=== PATIENT | female | born 1965 | race Asian ===

== ENCOUNTER 2024-02-03 09:03 | Emergency (ER) | payer OTHER ==
[~2024-02-03] VITALS: Ht 167.6 cm; Wt 68.2 kg
[2024-02-03 09:13] VITALS: TEMP 98.9
[2024-02-03 09:27] LABS: COVID AG,FIA SOURCE NASAL SWAB
[2024-02-03 10:02] LABS: SARS-COV2 (COVID) ANTIGEN,FIA Negative (Negative)
[2024-02-03 10:05] LABS: INFLUENZA TYPE A NEGATIVE FOR TYPE A (NEGATIVE); INFLUENZA TYPE B NEGATIVE FOR TYPE B (NEGATIVE)
[2024-02-03] MEDS: DEXAMETHASONE 4 MG TABLET PO ONE (10:09)
[2024-02-03] MEDS: BENZONATATE 100 MG CAPSULE PO ONE (10:10)
[2024-02-03] MEDS: IBUPROFEN 400 MG TABLET PO ONE (10:10)
[2024-02-03] MEDS ORDERED: BENZ-227 PO (10:53)
[2024-02-03 11:18] VITALS: PULSE 78; RESP 16; O2SAT 97
[2024-02-03] MEDS: ALBUTEROL SULFATE 2.5 MG/0.5 ML NEB SOLUTION NEB ONE (11:18)
[2024-02-03 11:21] VITALS: PULSE 78; RESP 16; O2SAT 98
[2024-02-03 11:41] VITALS: BP 137/78; PULSE 74; RESP 18; O2SAT 99
== END 2024-02-03 11:46 | disposition home or self-care (01) ==
LOC: EMS 09:03
DX: B34.9 Viral infection, unspecified (principal); R05.9 Cough, unspecified; J02.9 Acute pharyngitis, unspecified; R06.02 Shortness of breath; I10 Essential (primary) hypertension; Z20.822 Contact with and (suspected) exposure to COVID-19
CPT/HCPCS: 99284; 87426; 87804; 94640; J8540; J7613; Z7502; Z7610